=== PATIENT | male | born 1965 | race Caucasian/White ===

== ENCOUNTER 2020-03-12 06:49 | Emergency (ER) | payer OTHER | END 2020-03-12 07:49 | disposition home or self-care (01) | LOC: EDH 06:49 | DX: U07.1 COVID-19 (principal); R50.9 Fever, unspecified; E11.9 Type 2 diabetes mellitus without complications; I10 Essential (primary) hypertension ==

== ENCOUNTER → 2023-03-06 | Outpatient (CLI) | payer OTHER | END | disposition home or self-care (01) | LOC: OIH 08:38 | PROVIDERS: ATTEND Internal Medicine Cardiovascular Disease | DX: Z13.6 Encounter for screening for cardiovascular disorders (principal); R93.1 Abnormal findings on diagnostic imaging of heart and coronary circulation | CPT/HCPCS: 75571 ==

== ENCOUNTER → 2025-03-05 | Outpatient (CLI) | payer OTHER ==
--- NOTE | 2025-03-05 19:59 | HMCSR ---
APPROVED REPORT EXAM: Two-dimensional and M-mode echocardiogram with Doppler and color Doppler. INDICATION ICD: I10 Essential hypertension 2D Dimensions RVDd4.1 cmLVEF(%)64.4 (>50%)LVED Vol(simp.)91.0 mL IVSd0.6 (0.7-1.1cm)FS(%)35 %LVES Vol(simp.)38.0 mL LVDd4.4 (3.8-5.6cm)LA (2D)4.6 (1.6-4.0cm)LVEF(%, simp.)59 % PWd0.8 (0.7-1.1cm)Ao Root(2D)2.8 (2.0-3.7cm)LA ESV INDEX (BP)19.41 mL/m2 IVSs1.1 cmLVOT diam2.2 (1.8-2.4cm) LVDs2.9 (2.5-4.0cm)IVC diam1.9 cm PWs1.5 cm M-Mode Dimensions EPSS0.5 cm LA (MM)4.7 (1.6-4.0cm) Ao Root(MM)2.7 (2.0-3.7cm) Aortic Valve AoV Vmax1.3 m/Renae Peak GR7.2 mmHgLVOT Vmax1.1 m/s AoV VTI0.2 mAo Mean GR4.1 mmHgLVOT VTI0.19 m KATIUSKA (VMAX)2.93 cm2AVA (VTI) 3.1 cm2 Mitral Valve MV E Vmax72.8 cm/sDECEL Ynws030 ms MV A Vmax56.8 cm/sP 1/2 T46 ms E/A ratio1.3MVA (PHT)4.8 cm2 TDI E/E' Qufeku28.8E/E' Lateral7.3 Medial E' Peak V6.72 cm/sLateral E' Peak V9.98 cm/s Pulmonary Valve PV Vmax1.2 m/sPV VTI0.23 mPV Mean GR3.7 mmHg PV Peak GR5.8 mmHg Tricuspid Valve TR Vmax1.4 m/sRAP (EST) 3 [id number] mmHg TR Peak GR7.5 mmHg Left Ventricle The left ventricle is normal size. There is normal LV segmental wall motion. There is normal left quinton tricular wall thickness. The LVEF is > 55%. The left ventricular diastolic function is normal. Right Ventricle The right ventricle is normal size. Right ventricular systolic function is moderately reduced. Atria The left atrium size is normal. The right atrium size is normal. Aortic Valve The aortic valve is normal in structure. No aortic regurgitation is present. There is no aortic valvu lar stenosis. Mitral Valve The mitral valve is normal in structure. There is no mitral valve regurgitation noted. There is no mi tral valve stenosis. Tricuspid Valve The tricuspid valve is normal in structure. There is trace of tricuspid valve regurgitation noted. Pulmonic Valve The pulmonary valve is normal in structure and function. There is no pulmonic valvular regurgitation. Great Vessels The aortic root is normal in size. The IVC is normal in size and collapses >50% with inspiration. Pericardium There is no pericardial effusion. Other Information Quality : AdequateRhythm : NSR Conclusion The LVEF is > 55%. No significant valvular abnormalities No pericardial effusion
== END | disposition home or self-care (01) ==
LOC: RAH 14:29
PROVIDERS: ATTEND Student in an Organized Health Care Education/Training Program
DX: I11.9 Hypertensive heart disease without heart failure (principal); D64.9 Anemia, unspecified; R60.9 Edema, unspecified
CPT/HCPCS: 93306